=== PATIENT | female | born 1995 | race Caucasian/White ===

== ENCOUNTER → 2017-06-06 | Outpatient (CLI) | payer BC, OTHER ==
[~2017-06-06] MED LIST: CHOL100010 PO; DDAVP/1 PO; METH10TA4 PO; METH5TAB4 PO; POLY335019 PO; [UNRECOGNIZED DRUG - OTHER] PO
[2017-06-06 12:50] LABS: BASO % 0.3 %; BASO ABS # 0.02 K/uL (0-0.2); COMPLETE YES; EOS % 0.1 %; HEMATOCRIT 43.3 % (37-47); IG% 0.3 %; LYMPH ABS # 1.69 K/uL (1.2-3.4); MEAN CELL VOLUME 89.8 fL (80-100); MEAN CORPUSCULAR HEMOGLOBIN 30.9 pg (25-34); MEAN CORPUSCULAR HGB CONC 34.4 g/dl (32-36); MEAN PLATELET VOLUME 9.6 fL (7.4-10.4); MONO % 4.4 %; NEUT % 71.9 %; PLATELET COUNT 345 K/uL (130-400); RED BLOOD COUNT 4.82 M/uL (4.2-5.4); WHITE BLOOD COUNT 7.35 K/uL (4.8-10.8)
[2017-06-06 13:10] LABS: BLOOD UREA NITROGEN 9 mg/dl (7-18); CALCIUM 9.2 mg/dl (8.5-10.1); CARBON DIOXIDE 27 mmol/L (21-32); CHLORIDE 104 mmol/L (98-107); GLUCOSE 90 mg/dl (70-99); POTASSIUM 4.1 mmol/L (3.5-5.1); SODIUM 134 mmol/L (136-145)
[2017-06-06 13:23] LABS: BUN/CREATININE RATIO 11.1 (10-20); CREATININE 0.81 mg/dl (0.60-1.20); FERRITIN 102.5 ng/ml (8.0-388.0)
== END | disposition home or self-care (01) ==
LOC: C.LAB 12:05
DX: R53.83 Other fatigue (principal); E55.9 Vitamin D deficiency, unspecified